=== PATIENT | male | born 1980 | race Caucasian/White ===

== ENCOUNTER 2016-05-20 17:05 | Emergency (ER) | payer OTHER ==
[2016-05-20 17:11] VITALS: RESP 16; O2SAT 95
[2016-05-20] MEDS ORDERED: LETS SOLN TOPICAL 1 EA SYR TP ONE (17:23)
[2016-05-20] MEDS ORDERED: DOXYCYCLINE HYCLATE 100 MG CAP/TAB PO ONE (17:34)
--- NOTE | 2016-05-20 17:37 | EDPHY ---
H & P Stated Complaint: Lac to L thumb from shucking oysters Time Seen by Provider: 05/20/16 17:20 HPI/ROS: CHIEF COMPLAINT: Puncture wound HISTORY OF PRESENT ILLNESS: The patient is a 35-year-old man who comes to the emergency department complaining of a laceration/puncture to his right thumb thenar eminence that he sustained while shucking oysters. This happened just prior to arrival. He was at work. He is up-to-date on his tetanus. He denies other injuries. He has normal range of motion and sensation and capillary refill distally. REVIEW OF SYSTEMS: Constitutional: denies: chills, fever, recent illness, recent injury EENTM: denies: blurred vision, double vision, nose congestion Respiratory: denies: cough, shortness of breath Cardiac: denies: chest pain, irregular heart rate, lightheadedness, palpitations Gastrointestinal/Abdominal: denies: abdominal pain, diarrhea, nausea, vomiting, blood streaked stools Genitourinary: denies: dysuria, frequency, hematuria, pain Musculoskeletal: denies: joint pain, muscle pain Skin: See HPI Neurological: denies: headache, numbness, paresthesia, tingling, dizziness, weakness Hematologic/Lymphatic: denies: blood clots, easy bleeding, easy bruising Immunologic/allergic: denies: HIV/AIDS, transplant EXAM: GENERAL: Well-appearing, well-nourished and in no acute distress. HEAD: Atraumatic, normocephalic. EYES: Pupils equal round and reactive to light, extraocular movements intact, sclera anicteric, conjunctiva are normal. ENT: TMs normal, nares patent, oropharynx clear without exudates. Moist mucous membranes. NECK: Normal range of motion, supple without lymphadenopathy or JVD. LUNGS: Breath sounds clear to auscultation bilaterally and equal. No wheezes rales or rhonchi. HEART: Regular rate and rhythm without murmurs, rubs or gallops. ABDOMEN: Soft, nontender, normoactive bowel sounds. No guarding, no rebound. No masses appreciated. BACK: No CVA tenderness, no spinal tenderness, step-offs or deformities EXTREMITIES: Normal range of motion, no pitting or edema. No clubbing or cyanosis. NEUROLOGICAL: Cranial nerves II through XII grossly intact. Normal speech, normal gait. 5/5 strength, normal movement in all extremities, normal sensation PSYCH: Normal mood, normal affect. SKIN: 0.5 cm laceration to thenar eminence of left hand. Normal range of motion and sensation surrounding. No visible foreign body. Source: Patient Exam Limitations: No limitations - Personal History Current Tetanus Diphtheria and Acellular Pertussis (TDAP): Yes Tetanus Vaccine Date: 2011 - Medical/Surgical History Hx Asthma: No Hx Chronic Respiratory Disease: No Hx Diabetes: No Hx Cardiac Disease: No Hx Renal Disease: No Hx Cirrhosis: No Hx Alcoholism: No Other PMH: healthy - Family History Significant Family History: No pertinent family hx - Social History Smoking Status: Never smoked Alcohol Use: Sober Drug Use: None Constitutional: Initial Vital Signs Temperature (C) 36.7 C 05/20/16 17:06 Heart Rate 85 05/20/16 17:06 Respiratory Rate 16 05/20/16 17:06 Blood Pressure 130/87 H 05/20/16 17:06 O2 Sat (%) 95 05/20/16 17:06 O2 Delivery Mode Room Air Allergies/Adverse Reactions: Penicillins Allergy (Unknown, Verified 05/20/16 17:11) as child Sulfa (Sulfonamide Antibiotics) Allergy (Unknown, Verified 05/20/16 17:11) as child Home Medications: Medication Instructions Recorded Doxycycline Hyclate [Vibramycin] 100 mg PO BID #30 cap 05/20/16 Hydrocodone/APAP 5/325 [[place] 1 - 2 tab PO Q4H PRN #20 tab 05/20/16 5/325 (RX)] Medical Decision Making ED Course/Re-evaluation: The patient has a high risk for infection puncture wound to his hand. I will start him on doxycycline to treat for potential vibrio. Will not close his wound because it is minimal and cultured in nature and not gaping. It was cleaned aggressively with saline and dressed with bacitracin. Differential Diagnosis: Partial list of the Differential diagnosis considered include but were not limited to; puncture wound, laceration, wound infection, foreign body and although unlikely based on the history and physical exam, I also considered tendon injury, nerve injury, vascular. I discussed these differential diagnoses and the plan with the patient as well as the usual and expected course. The patient understands that the diagnosis is provisional and that in medicine we are not always correct and that further workup is often warranted. Usual and customary warnings were given. All of the patient's questions were answered. The patient was instructed to return to the emergency department should the symptoms at all worsen or return, otherwise to followup with the physician as we discussed. - Data Points Medications Given: Discontinued Medications Tetracaine/Epinephrine/Lidocaine (Lets Soln Topical) 1 ea TP EDNOW ONE Stop: 05/20/16 17:24 Last Admin: 05/20/16 17:27 Dose: 1 ea Departure - Departure Disposition: Home, Routine, Self-Care Clinical Impression: Puncture wound Condition: Fair Instructions: Puncture Wound (ED) Referrals: Amy Santiago MD [Medical Doctor] - As per Instructions Prescriptions: Doxycycline Hyclate [Vibramycin] 100 mg PO BID #30 cap Hydrocodone/APAP 5/325 [[place] 5/325 (RX)] 1 - 2 tab PO Q4H PRN #20 tab PRN Reason: Pain, Moderate
[2016-05-20 18:23] VITALS: BP 121/74; PULSE 90; TEMP 99
== END 2016-05-20 18:21 | disposition home or self-care (01) ==
DX: S61.031A Puncture wound without foreign body of right thumb without damage to nail, initial encounter (principal); W45.8XXA Other foreign body or object entering through skin, initial encounter; Y92.69 Other specified industrial and construction area as the place of occurrence of the external cause; Y99.0 Civilian activity done for income or pay; Y93.89 Activity, other specified